=== PATIENT | female | born 1975 | race Caucasian/White ===

== ENCOUNTER → 2018-11-17 | Day surgery (SDC) | payer OTHER ==
[~2018-11-17] MED LIST: CEFAZOLIN 1 GM INJ; DESFLURANE 15 MIN; HYDROmorphONE 1 MG/5 ML IV SYRINGE IV; LIDOCAINE 2% (SDV) 5 ML INJ; MEPERIDINE 25 MG INJ IV; MIDAZOLAM 1 MG/ML 2 ML INJ; ONDANSETRON 4 MG INJ; ONDANSETRON 4 MG INJ IV; POLYMYXIN/BACITRACIN 1L IRRIG; PROPOFOL 20 ML; ROCURONIUM 50 MG INJ; ROPIVACAINE 0.5 % 30 ML VIAL; SUCCINYLCHOLINE CHLORIDE 100 MG/5 ML SYG IV
[2018-11-17 10:34] LABS: ADD MAN DIFF? NO
[2018-11-17 10:38] LABS: WHITE BLOOD COUNT 7.9 10^3/ul (4.8-10.8)
[2018-11-17 10:38] LABS: ABNORMAL IP MESSAGE 1; BASOPHIL # 0.1 10^3/ul (0.0-0.1); BASOPHILS % 0.8 % (0.0-2.0); EOSINOPHILS # 0.1 10^3/ul (0.0-0.5); EOSINOPHILS % 1.4 % (0.0-7.0); HEMATOCRIT 36.8 % (37.0-47.0); HEMOGLOBIN 11.5 g/dl (12.0-16.0); LYMPHOCYTES # 1.9 10^3/ul (0.8-2.9); LYMPHOCYTES % 23.9 % (15.0-51.0); MEAN CORPUSCULAR HEMOGLOBIN 26.4 pg (29.0-33.0); MEAN CORPUSCULAR HGB CONC 31.3 g/dl (32.0-37.0); MEAN CORPUSCULAR VOLUME 84.6 fl (82.0-101.0); MEAN PLATELET VOLUME 10.5 fl (7.4-10.4); MONOCYTE # 0.5 10^3/ul (0.3-0.9); MONOCYTES % 5.8 % (0.0-11.0); NEUTROPHIL # 5.4 10^3/ul (1.6-7.5); NEUTROPHILS % 67.7 % (39.0-77.0); PLATELET COUNT 296 10^3/UL (140-415); RED BLOOD COUNT 4.35 10^6/ul (4.20-5.40)
[2018-11-17 10:42] LABS: POSITIVE DIFF @See below
[2018-11-17 10:55] LABS: ALANINE AMINOTRANSFERASE 20 IU/L (13-69); ALBUMIN 4.2 g/dl (3.3-4.9); ALKALINE PHOSPHATASE 86 IU/L (42-121); ANION GAP 9 (5-13); ASPARTATE AMINO TRANSFERASE 26 IU/L (15-46); BILIRUBIN,INDIRECT 0.1 mg/dl (0-1.1); BILIRUBIN,TOTAL 0.1 mg/dl (0.2-1.3); BLOOD UREA NITROGEN 8 mg/dl (7-20); CALCIUM 8.9 mg/dl (8.4-10.2); CARBON DIOXIDE 26 mmol/L (21-31); CHLORIDE 106 mmol/L (97-110); CREATININE 0.61 mg/dl (0.44-1.00); Estimated GFR > 60 mL/min (>60); GLUCOSE 77 mg/dl (70-220); POTASSIUM 4.1 mmol/L (3.5-5.1); SODIUM 141 mmol/L (135-144)
[2018-11-17 10:56] LABS: INR 1.02; PROTIME 13.5 Sec (11.9-14.9); PT RATIO 1.1
[2018-11-17 10:57] LABS: PARTIAL THROMBOPLASTIN TIME 28.4 Sec (23.0-35.0)
[2018-11-17] MEDS: HYDROmorphONE 1 MG/5 ML IV SYRINGE IV (14:03)
[2018-11-17] MEDS: HYDROCODONE/APAP (5/325) TAB PO (14:30)
== END | disposition home or self-care (01) ==
LOC: SDS 08:58
DX: K43.0 Incisional hernia with obstruction, without gangrene (principal)
CPT/HCPCS: 49655; 80053; 85025; 85610; 85730